=== PATIENT | male | born 1995 | race Caucasian/White ===

== ENCOUNTER 2023-05-19 15:37 | Emergency (ER) | payer MEDICAID ==
[~2023-05-19] VITALS: Ht 170.2 cm; Wt 75.0 kg
[2023-05-19 15:40] VITALS: O2SAT 98
[2023-05-19] MEDS: TETANUS, DIPHTHERIA, PERTUSSIS VAC/PF 0.5ML (>10YR OLD) IM ONE (17:55)
[2023-05-19 17:56] VITALS: RESP 18
[2023-05-19] MEDS: HYDROCODONE/ACETAMINOPHEN 5/325MG TABLET PO ONE (17:56)
[2023-05-19] MEDS: LIDOCAINE HCL/PF 1% 10 MG/ML 5ML VIAL INFIL ONE (17:56)
[2023-05-19] MEDS: BACITRACIN ZINC OINT UDPKT TOP ONE (17:56)
[2023-05-19] MEDS ORDERED: NAPR-681 PO (19:03)
[2023-05-19 19:56] VITALS: BP 121/72; PULSE 63; TEMP 97.9
== END 2023-05-19 19:58 | disposition home or self-care (01) ==
LOC: ER 15:37
DX: S01.01XA Laceration without foreign body of scalp, initial encounter (principal); G93.0 Cerebral cysts; Y08.89XA Assault by other specified means, initial encounter; Y93.89 Activity, other specified; Y92.89 Other specified places as the place of occurrence of the external cause; Y99.8 Other external cause status
CPT/HCPCS: 70450; 90715; 90471; 99285; J3490; Z7610 ×3

== ENCOUNTER 2023-05-24 11:58 | Emergency (ER) | payer MEDICAID ==
[~2023-05-24] VITALS: Ht 180.3 cm; Wt 74.0 kg
[~2023-05-24 11:58] MED LIST: NAPR-681 PO
[2023-05-24 12:06] VITALS: BP 132/75; PULSE 93; RESP 20; TEMP 98.4; O2SAT 100
== END 2023-05-24 12:25 | disposition home or self-care (01) ==
LOC: ER 11:58
DX: S01.01XD Laceration without foreign body of scalp, subsequent encounter (principal); Z48.02 Encounter for removal of sutures; X58.XXXD Exposure to other specified factors, subsequent encounter
CPT/HCPCS: 99281

== ENCOUNTER 2024-01-20 23:22 | Emergency (ER) | payer MEDICAID ==
[~2024-01-20] VITALS: Ht 170.2 cm; Wt 104.0 kg
[2024-01-20 23:25] VITALS: O2SAT 100
[2024-01-21] MEDS: LORAZEPAM 0.5MG TABLET PO ONE (00:22)
[2024-01-21 00:45] VITALS: BP 130/83; PULSE 89; RESP 18; TEMP 37.11408; O2SAT 99
== END 2024-01-21 00:49 | disposition home or self-care (01) ==
LOC: ER 23:22
DX: F41.9 Anxiety disorder, unspecified (principal); R06.02 Shortness of breath; R00.2 Palpitations
CPT/HCPCS: 99283

== ENCOUNTER 2024-10-27 20:19 | Emergency (ER) | payer SELFPAY ==
[~2024-10-27] VITALS: Ht 175.3 cm; Wt 109.0 kg
[2024-10-27 20:21] VITALS: O2SAT 100
[2024-10-27 22:35] LABS: BASOPHILS % 0.5 % (0.0-2.0); EOSINOPHILS % 2.4 % (0.0-5.0); HEMATOCRIT. 39.8 % (42.0-52.0); HEMOGLOBIN. 13.3 g/dL (14.0-18.0); LYMPHOCYTES % 30.4 % (20.0-50.0); MEAN PLATELET VOLUME 8.0 fl (7.4-10.4); MONOCYTES % 6.1 % (2.0-8.0); NEUTROPHILS % 60.6 % (40.0-76.0); PLATELET 359 x1000/uL (130-400); RED BLOOD CELL COUNT 4.78 mill/uL (4.7-6.1); RED CELL DISTRIBUTION WIDTH 13.8 % (11.6-14.6)
[2024-10-27 22:52] LABS: CREATININE 0.8 mg/dL (0.6-1.3); INR 1.0
[2024-10-27 22:53] LABS: ETHANOL BLOOD < 10 mg/dL (<10); TROPONIN I HIGH SENSITIVITY < 4 ng/L (3.0-53); UREA NITROGEN BLOOD 13 mg/dL (9-23)
[2024-10-27 22:54] LABS: ASPARTATE AMINOTRANSFERASE 16 IU/L (<34)
[2024-10-27 22:55] LABS: BILIRUBIN DIRECT 0.2 mg/dL (<=3.0); BILIRUBIN TOTAL 0.4 mg/dL (0.1-1.0); PROTEIN TOTAL 7.4 g/dL (6.0-8.3)
[2024-10-27] MEDS ORDERED: HYDR-459 MT (23:04)
[2024-10-27 23:13] VITALS: BP 148/81; PULSE 88; RESP 18; TEMP 36.8; O2SAT 100
[2024-10-27 23:22] LABS: CLARITY URINE CLEAR (CLEAR); COLOR URINE YELLOW (YELLOW); GLUCOSE URINE NEGATIVE (NEGATIVE); KETONES URINE NEGATIVE (NEGATIVE); LEUKOCYTE ESTERASE URINE 2+ (NEGATIVE); NITRITE URINE NEGATIVE (NEGATIVE); OCCULT BLOOD URINE NEGATIVE (NEGATIVE); PH URINE 6.0 (4.5-8.0); PROTEIN URINE TRACE (NEGATIVE); SPECIFIC GRAVITY URINE 1.025 (1.005-1.030); UROBILINOGEN URINE 1.0 E.U./dL (0.2-1.0)
[2024-10-27 23:35] LABS: *AMPHETAMINES SCREEN URINE NEGATIVE (NEGATIVE); *BARBITURATES SCREEN URINE NEGATIVE (NEGATIVE); *BENZODIAZEPINES SCREEN URINE NEGATIVE (NEGATIVE); *COCAINE SCREEN URINE NEGATIVE (NEGATIVE); CANNABINOID URINE SCREEN NEGATIVE (NEGATIVE); ECSTASY MDMA SCREEN URINE NEGATIVE (NEGATIVE); METHADONE URINE SCREEN NEGATIVE (NEGATIVE); OPIATES URINE SCREEN NEGATIVE (NEGATIVE); PHENCYCLIDINE URINE SCREEN NEGATIVE (NEGATIVE)
[2024-10-28 03:58] LABS: RBC URINE 0-2 /hpf (0-2)
[2024-10-28 03:59] LABS: SQUAMOUS EPITHELIAL CELL URINE FEW /lpf (RARE/1+)
[2024-10-28 04:02] LABS: BACTERIA URINE TRACE
== END 2024-10-27 23:18 | disposition home or self-care (01) ==
LOC: ER 20:19
DX: F41.9 Anxiety disorder, unspecified (principal); Z79.899 Other long term (current) drug therapy; Z98.890 Other specified postprocedural states
CPT/HCPCS: 36415; 71045; 80048; 80076; 80305; 80307; 80320; 80329; 81003; 83735; 84484; 85025; 93005; 99285; G0480